=== PATIENT | male | born 1995 | race American Indian/Alaskan Native ===

== ENCOUNTER 2017-12-30 02:32 | Emergency (ER) | payer OTHER ==
[2017-12-30 02:39] VITALS: BP 127/85; PULSE 62; RESP 22; TEMP 98.4; O2SAT 99
[2017-12-30 02:40] VITALS: BMI 24.3
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
== END 2017-12-30 03:04 | disposition home or self-care (01) ==
LOC: ED 02:32
DX: Z02.89 Encounter for other administrative examinations (principal)